=== PATIENT | male | born 1955 | race Caucasian/White ===

== ENCOUNTER 2016-09-28 12:17 | Emergency (ER) ==
[2016-09-28 12:26] VITALS: BP 163/79
[2016-09-28 12:55] LABS: MANUAL DIFF NEEDED? NO
[2016-09-28 12:55] LABS: URINE CULTURE PL NEEDED? NO; URINE SOURCE CLEAN CATCH
[2016-09-28 12:57] LABS: BASO% 0.2 % (0.0-0.8); EOS# 0.05 X1000 (0.0-0.7); EOS% 0.5 % (0.0-10.0); HEMATOCRIT 48.9 % (42.0-52.0); HEMOGLOBIN 16.4 g/dL (14.0-18.0); IMM GRAN# 0.02 X1000 (0.0-0.04); IMM GRAN% 0.2 % (0.0-0.5); LYMPH# 1.16 X1000 (1.2-3.4); MCH 29.6 PG (27-31); MCHC 33.5 g/dL (33-37); MCV 88.3 FL (81-99); MONO# 1.17 X1000 (0.11-0.59); MONO% 12.1 % (1.7-9.3); MPV 8.7 FL (7.4-10.4); PLT 298 X1000 (130-400); RBC 5.54 XMIL (4.7-6.1)
--- NOTE | 2016-09-28 13:09 | EKG Report ---
Test Performed on : 09/28/2016 12:55:23 PM Test Reason : prob[address] court medical clearance Blood Pressure : / mmHG Vent. Rate : 076 BPM Atrial Rate : 076 BPM P-R Int : 160 ms QRS Dur : 098 ms QT Int : 506 ms P-R-T Axes : 071 056 074 degrees QTc Int : 569 ms Normal sinus rhythm. Prolonged QT Abnormal ECG No previous ECGs available Unconfirmed Result
--- NOTE | 2016-09-28 13:10 | ED EKG INTERP ---
EKG Interpretation - EKG Time of EKG reading by physician:: 12:55 EKG Read and Signed by:: Hardeep Becker EKG Interpretation (*Must complete 3 of following elements*): Abnormal ( PROLONGED QT;ABNORMAL ECG) Rate: 76 Rhythm: NSR [place]: normal [place] Interval: normal Attestation - Scribe Verification/Attestation Scribe:: Yomi Flaherty Acting as Scribe for:: Hardeep Becker Scribe documention review:: This chart was documented by a scribe and accurately reflects the service the provider performed and the decisions made by the provider. Physician Attestation - Physician Attestation I, the provider, attest to the following statement:: Hardeep Becker Physician documentation Attestation:: This documentation recorded by the scribe accurately reflects the service I personally performed and the decisions made by me.
--- NOTE | 2016-09-28 13:13 | Diag Imaging Result Document ---
PROCEDURE NAME: HEAD W/O CONTRAST - 09/28/2016 CT HEAD WITHOUT CONTRAST: A dose-reduction protocol was used. COMPARISON: No comparison exam. FINDINGS: There is no evidence of intracranial hemorrhage, mass effect, midline shift, or hydrocephalus. There is no evidence of infarct, although acute infarcts may not be immediately visible. There is no skull fracture. IMPRESSION: No visible acute process. No hemorrhage or mass effect.
--- NOTE | 2016-09-28 13:14 | Diag Imaging Result Document ---
PROCEDURE NAME: CHEST-2 VIEWS - 09/28/2016 CHEST, 2 VIEWS: COMPARISON: No comparison exam. FINDINGS: Heart size is normal. There is apparent mild lobulated pleural thickening at the lateral lower chest on the left. It is possible that this could relate to previous rib fractures. The lungs, otherwise, appear clear. There is no pleural effusion or pneumothorax identified. IMPRESSION: Mild lobulated pleural thickening at the lateral lower left chest. This is of uncertain etiology but could conceivably relate to previous rib fractures. The possibility that this is artifact from soft tissue overlap cannot be entirely excluded. No other evidence of acute disease.
[2016-09-28 13:15] LABS: AGAP 13; ALBUMIN 4.7 g/dL (3.5-5.0); ALKALINE PHOSPHATASE 103 U/L (32-122); BUN 18 mg/dL (8-22); CALCIUM 9.6 mg/dL (8.8-10.2); CHLORIDE 97 mmol/L (98-107); COSMO 271; GOT 17 U/L (10-34); GPT 15 U/L (10-44); MAGNESIUM 2.2 mg/dL (1.5-2.7); POTASSIUM 3.8 mmol/L (3.5-5.1); SODIUM 134 mmol/L (136-145); TCO2 24 mmol/L (25-35); TOTAL PROTEIN 8.7 g/dL (6.3-8.3)
[2016-09-28 13:16] LABS: BILIRUBIN URINE NEGATIVE (NEGATIVE); BLOOD URINE TRACE (NEGATIVE); CLARITY CLEAR (CLEAR); COLOR YELLOW; GLUCOSE URINE NEGATIVE (NEGATIVE); LEUKOCYTES URINE NEGATIVE (NEGATIVE); NITRITE URINE NEGATIVE (NEGATIVE); PROTEIN URINE TRACE mg/dL (NEGATIVE); SP GRAVITY URINE 1.015; URINE EPITHELIAL CELLS <10 /HPF (<10); URINE RBC <10 /HPF (<10); UROBILINOGEN URINE NORMAL
[2016-09-28 13:26] LABS: FREE T4 1.81 ng/dL (0.93-1.70)
--- NOTE | 2016-09-28 13:34 | PROVIDER DOCUMENTATION ---
HPI-General Adult - General Chief Complaint: Psych Stated Complaint: TRACY VO Time Seen by Provider: 09/28/16 12:19 Source: patient, family Allergies/Adverse Reactions: Patient Allergies Allergy/AdvReac Type Severity Reaction Status Date / Time No Known Allergies Allergy Verified 09/28/16 12:25 Home Medications: Home Medication List Medication Instructions Recorded Confirmed Last Taken Type No Home Medications 09/28/16 09/28/16 Unknown History - History of Present Illness -Gen Adult Nature of Presenting Problems: Pt. is 61 yom that presents with c/o visual hallucinations. Pt. reports last night he was seeing people in the house and telling his about them. He was seeing people from his place of employment and animals such as a snake. Pt. denies any SI, HI or auditory hallucinations. Pt. is unsure if he wants to seek in-patient treatment but is willing to be screened because he isn't sure why this is happening to him. Spouse at bedside reports the patient used to be an addict and that this does not seem like when he used drugs. Pt. denies any physical complaints. Location of Pain/Injury: reports: none. denies: head, face, mouth, neck, chest , upper extremity, hand(s), abdomen, back, pelvis, genitalia, lower extremity, feet, upper body, lower body, generalized Pain Radiation: reports: no radiation Quality of Pain: reports: none. denies: aching, burning, cramping, dull, fullness, indigestion, pressure, sharp, stabbing, tearing, throbbing, tightness Severity: denies: mild, moderate, severe Onset/Duration: reports: abrupt, last night Timing: reports: still present. denies: improving, gone now, resolved prior to arrival, intermittent, constant, changing over time, getting worse Context/Activities at Onset: reports: none. denies: recent emotional stress, recent physical stress, recent trauma history, possible bad food, cold exposure , out of country travel Modifying Factors: improves with: nothing Associated Symptoms: reports: other (Visual hallucinations). denies: anxiety, arm pain, back/neck pain, chest pain, constipation, cough, diaphoresis, diarrhea , dizziness, EENT symptoms, fatigue, fever/chills, genitourinary problems, headaches, heartburn, joint pain, loss of appetite, malaise, muscle aches, sinus congestion/drainage, nausea, rash, seizure, shortness of breath, sensory/ motor loss, pain with inspiration, swelling/mass in abdomen, syncope, vomiting, weakness, trouble walking Similar Symptoms Previously?: Yes Recently seen or treated by another doctor?: No Review of Systems - Adult - REVIEW OF SYSTEMS - ADULT Constitutional: reports: see HPI. denies: chills, fever, fatique Eyes: reports: see HPI. denies: discharge, blurred vision, eye pain Ears, Nose, Mouth & Throat: reports: see HPI. denies: ear discharge, ear pain, hearing loss, sinus problem, nose pain, loose teeth, mouth/dental pain, throat swelling Cardiovascular: reports: see HPI. denies: chest pain, heart murmur, orthopnea, palpitations, syncope Respiratory: reports: see HPI. denies: chronic cough, cough, dyspnea on exertion, pleurisy, shortness of breath, wheezing Gastrointestinal: reports: see HPI. denies: abdominal pain, hematemesis, diarrhea, nausea, vomiting Genitourinary: reports: see HPI. denies: dysuria, discharge, flank pain, hesitency, urgency Musculoskeletal: reports: see HPI. denies: bone pain, back pain, joint pain, muscle aches, neck pain Integumentary: reports: see HPI. denies: hives, itching, rash, skin thickening Neurological: reports: see HPI. denies: ataxia, headache/migraines, numbness, seizure, tremors Psychiatric: reports: see HPI, other (Visual hallucinations). denies: anxiety, depression, emotional problems, insomnia, panic attacks, suicidal thoughts Past History - Adult - PAST MEDICAL HISTORY-ADULT Review of Records: reports: Old Records Reviewed, Nursing Assessment Review, Medications Reviewed, Social history reviewed & non-contributory. - IMMUNIZATION STATUS Childhood Immunizations: See Nurse Assessment Flu Vaccine: See Nurse Assessment - FAMILY HISTORY Family History: reviewed, not pertinent - SOCIAL HISTORY Smoking: non-smoker Physical Exam-General - PHYSICAL EXAM-ADULT Initial Vital Signs Reviewed: Yes - CONSTITUTIONAL General Appearance: alert, mild distress, thin. negative: obese, anxious, lethargic, slow to respond, obtunded, combative - EYES Eyes: PERRL/EOMI, pink conjunctivae. negative: conjuctival exudate, scleral icterus, subconjunctival hemorrhage - HEAD, EARS, NOSE, MOUTH & THROAT HENMT: normocephalic/atraumatic, moist mucous membranes. negative: angioedema, frontal tenderness, maxillary tenderness - NECK Neck: non-tender, full range of motion, supple, normal inspection. negative: lymphadenopathy, trachial deviation, thyromegaly - RESPIRATORY Respiratory: lungs clear, normal breath sounds. negative: crackles, rales, rhonchi, stridor, wheezing - CARDIOVASCULAR Cardiovascular: normal peripheral pulses, regular rate, rhythm, no edema, no JVD , no murmur. negative: extra beats, friction rub, irregularly irregular - CHEST (BREASTS) Chest/Breast: deferred - GASTROINTESTINAL (ABDOMEN) Abdominal Exam: normal bowel sounds, non tender, soft. negative: distended, guarding, rigid, rebound, tenderness, hernia, mass - GENITOURINARY Male Genitalia: deferred Rectal Exam: deferred Hemoccult Exam: deferred - LYMPHATIC Lymphatic: no adenopathy. negative: axilla node tender, cervical node tenderness - MUSCULOSKELETAL Back Exam: normal inspection, no CVA tenderness, no vertebral tenderness. negative: ecchymosis, swelling, vertebral tenderness Extremity: normal range of motion, non-tender, normal gait, normal inspection. negative: deformity, erythema, inflammation, swelling, tenderness Peripheral Pulses: radial (R): 2+, radial (L): 2+ - SKIN Integumentary: normal color, normal turgor, warm/dry. negative: cyanosis, diaphoresis, ecchymosis, erythema, jaundice, mottled, pallor, petechiae, purpura , rash, swelling, tenderness - NEUROLOGIC Neurologic: grossly normal, no motor/sensory deficits. negative: aphasia, facial droop, focal weakness, motor weakness, sensory deficit - PSYCHIATRIC Psych/Mental Status: oriented x 3, disheveled, other (Visual hallucinations). negative: anxious, paranoid Progress - PLAN OF CARE/RESULTS Progress/Plan/Lab Results: Discussed chest x-ray results with Dr. Becker and he states there is nothing to do for the patient based on the radiology reading and the fact that the patient has no physical complaints. Sharron from [facility] evaluated the patient and the patient refused any in patient treatment. He will seek outpatient treatment Discussed results and plan of care with patient. Patient agrees with plan and verbalizes understanding. Vital Signs Temp Pulse Resp BP Pulse Ox 09/28/16 12:20 98 F 81 18 163/79 100 No Known Allergies Allergy (Verified 09/28/16 12:25) No Home Medications 09/28/16 Laboratory 09/28/16 09/28/16 09/28/16 12:48 12:48 12:48 WBC 9.63 RBC 5.54 Hgb 16.4 Hct 48.9 MCV 88.3 MCH 29.6 MCHC 33.5 RDW Std Deviation 13.1 Plt Count 298 MPV 8.7 Immature Gran % (Auto) 0.2 Neut % (Auto) 75.0 Lymph % (Auto) 12.0 L [place] % (Auto) 12.1 H Eos % (Auto) 0.5 Baso % (Auto) 0.2 Immature Gran # (Auto) 0.02 Neut # (Auto) 7.21 H Lymph # (Auto) 1.16 L [place] # (Auto) 1.17 H Eos # (Auto) 0.05 Baso # (Auto) 0.02 Sodium 134 L Potassium 3.8 Chloride 97 L Carbon Dioxide 24 L Anion Gap 13 BUN 18 Creatinine 0.9 Estimated GFR/1.73 m2 > 60 BUN/Creatinine Ratio 20 Glucose 115 H Calculated Osmolality 271 Calcium 9.6 Magnesium 2.2 Total Bilirubin 1.00 AST 17 ALT 15 Alkaline Phosphatase 103 Total Protein 8.7 H Albumin 4.7 Globulin 4.0 Albumin/Globulin Ratio 1.0 TSH 0.56 Free T4 1.81 H Urine Source Urine Color Urine Clarity Urine pH Ur Specific [place] Urine Protein Urine Ketones Urine Blood Urine Nitrite Urine Bilirubin Urine Urobilinogen Urine Microscopic RBC Urine WBC Ur Epithelial Cells Urine Bacteria Urine Yeast Urine Glucose Urine Opiates Screen Ur Oxycodone Screen Urine Methadone Screen Ur Barbituates Screen Ur Tricyclics Screen Ur Phencyclidine Scrn Ur Amphetamines Screen U Methamphetamines Scrn Urine MDMA Screen U Benzodiazepines Scrn Urine Cocaine Screen U Cannabinoids Screen 09/28/16 09/28/16 12:30 12:30 WBC RBC Hgb Hct MCV MCH MCHC RDW Std Deviation Plt Count MPV Immature Gran % (Auto) Neut % (Auto) Lymph % (Auto) [place] % (Auto) Eos % (Auto) Baso % (Auto) Immature Gran # (Auto) Neut # (Auto) Lymph # (Auto) [place] # (Auto) Eos # (Auto) Baso # (Auto) Sodium Potassium Chloride Carbon Dioxide Anion Gap BUN Creatinine Estimated GFR/1.73 m2 BUN/Creatinine Ratio Glucose Calculated Osmolality Calcium Magnesium Total Bilirubin AST ALT Alkaline Phosphatase Total Protein Albumin Globulin Albumin/Globulin Ratio TSH Free T4 Urine Source CLEAN CATCH Urine Color YELLOW Urine Clarity CLEAR Urine pH 6.0 Ur Specific [place] 1.015 Urine Protein TRACE A Urine Ketones NEGATIVE Urine Blood TRACE Urine Nitrite NEGATIVE Urine Bilirubin NEGATIVE Urine Urobilinogen NORMAL Urine Microscopic RBC <10 Urine WBC NEGATIVE Ur Epithelial Cells <10 Urine Bacteria 1+ Urine Yeast PRESENT Urine Glucose NEGATIVE Urine Opiates Screen PRESUMPTIVE POSITIVE A Ur Oxycodone Screen PRESUMPTIVE POSITIVE A Urine Methadone Screen NONE DETECTED Ur Barbituates Screen NONE DETECTED Ur Tricyclics Screen NONE DETECTED Ur Phencyclidine Scrn NONE DETECTED Ur Amphetamines Screen NONE DETECTED U Methamphetamines Scrn NONE DETECTED Urine MDMA Screen NONE DETECTED U Benzodiazepines Scrn PRESUMPTIVE POSITIVE A Urine Cocaine Screen NONE DETECTED U Cannabinoids Screen NONE DETECTED Orders Category Date Time Status CHEST-2 VIEWS [RAD] Stat Exams 09/28/16 12:19 Completed HEAD W/O CONTRAST [CT] Stat Exams 09/28/16 12:20 Completed CBC WITH ELECTRONIC DIFF [HEME] Stat Lab 09/28/16 12:48 Completed COMPREHENSIVE METABOLIC PANEL [CHEM] Stat Lab 09/28/16 12:48 Completed FOLATE Stat Lab 09/28/16 12:48 Received FREE T4 Stat Lab 09/28/16 12:48 Results MAGNESIUM [CHEM] Stat Lab 09/28/16 12:48 Completed RPR [SERO] Stat Lab 09/28/16 12:48 Received TSH Stat Lab 09/28/16 12:48 Results UDS [URINE DRUG SCREEN PL] Stat Lab 09/28/16 12:[address] W/POSS RFLX CULT [URINALYSIS] Stat Lab 09/28/16 12:30 Completed VITAMIN B12 Stat Lab 09/28/16 12:48 Results EKG [EKG] Stat Ther 09/28/16 12:19 Draft Laboratory Tests 09/28/16 09/28/16 09/28/16 12:30 12:30 12:48 WBC RBC Hgb Hct MCV MCH MCHC RDW Std Deviation Plt Count MPV Immature Gran % (Auto) Neut % (Auto) Lymph % (Auto) [place] % (Auto) Eos % (Auto) Baso % (Auto) Immature Gran # (Auto) Neut # (Auto) Lymph # (Auto) [place] # (Auto) Eos # (Auto) Baso # (Auto) Sodium 134 L Potassium 3.8 Chloride 97 L Carbon Dioxide 24 L Anion Gap 13 BUN 18 Creatinine 0.9 Estimated GFR/1.73 m2 > 60 BUN/Creatinine Ratio 20 Glucose 115 H Calculated Osmolality 271 Calcium 9.6 Magnesium 2.2 Total Bilirubin 1.00 AST 17 ALT 15 Alkaline Phosphatase 103 Total Protein 8.7 H Albumin 4.7 Globulin 4.0 Albumin/Globulin Ratio 1.0 TSH Free T4 Urine Source CLEAN CATCH Urine Color YELLOW Urine Clarity CLEAR Urine pH 6.0 Ur Specific [place] 1.015 Urine Protein TRACE A Urine Ketones NEGATIVE Urine Blood TRACE Urine Nitrite NEGATIVE Urine Bilirubin NEGATIVE Urine Urobilinogen NORMAL Urine Microscopic RBC <10 Urine WBC NEGATIVE Ur Epithelial Cells <10 Urine Bacteria 1+ Urine Yeast PRESENT Urine Glucose NEGATIVE Urine Opiates Screen PRESUMPTIVE POSITIVE A Ur Oxycodone Screen PRESUMPTIVE POSITIVE A Urine Methadone Screen NONE DETECTED Ur Barbituates Screen NONE DETECTED Ur Tricyclics Screen NONE DETECTED Ur Phencyclidine Scrn NONE DETECTED Ur Amphetamines Screen NONE DETECTED U Methamphetamines Scrn NONE DETECTED Urine MDMA Screen NONE DETECTED U Benzodiazepines Scrn PRESUMPTIVE POSITIVE A Urine Cocaine Screen NONE DETECTED U Cannabinoids Screen NONE DETECTED 09/28/16 09/28/16 12:48 12:48 WBC 9.63 RBC 5.54 Hgb 16.4 Hct 48.9 MCV 88.3 MCH 29.6 MCHC 33.5 RDW Std Deviation 13.1 Plt Count 298 MPV 8.7 Immature Gran % (Auto) 0.2 Neut % (Auto) 75.0 Lymph % (Auto) 12.0 L [place] % (Auto) 12.1 H Eos % (Auto) 0.5 Baso % (Auto) 0.2 Immature Gran # (Auto) 0.02 Neut # (Auto) 7.21 H Lymph # (Auto) 1.16 L [place] # (Auto) 1.17 H Eos # (Auto) 0.05 Baso # (Auto) 0.02 Sodium Potassium Chloride Carbon Dioxide Anion Gap BUN Creatinine Estimated GFR/1.73 m2 BUN/Creatinine Ratio Glucose Calculated Osmolality Calcium Magnesium Total Bilirubin AST ALT Alkaline Phosphatase Total Protein Albumin Globulin Albumin/Globulin Ratio TSH 0.56 Free T4 1.81 H Urine Source Urine Color Urine Clarity Urine pH Ur Specific [place] Urine Protein Urine Ketones Urine Blood Urine Nitrite Urine Bilirubin Urine Urobilinogen Urine Microscopic RBC Urine WBC Ur Epithelial Cells Urine Bacteria Urine Yeast Urine Glucose Urine Opiates Screen Ur Oxycodone Screen Urine Methadone Screen Ur Barbituates Screen Ur Tricyclics Screen Ur Phencyclidine Scrn Ur Amphetamines Screen U Methamphetamines Scrn Urine MDMA Screen U Benzodiazepines Scrn Urine Cocaine Screen U Cannabinoids Screen - XRAY 1 XRAY Study: Chest (Mild lobulated pleural thickening at the lateral lower left chest. This is of uncertain etiology but could conceivably relat to previous rib fractures. The possibility that this is artifact from soft tissue orverlap cannot be entirely excluded. No other evidence of acute disease. ( [place])) XRAY Interpretation: See note - CT/MRI 1 CT Study: Head CT Results: No visual acute process. No hemorrhage or mass effect ([place]) Departure - Departure Time of Disposition Order: 15:28 DIAGNOSIS: Substance abuse, Visual hallucinations Disposition: HOME 01 Certified Medical Emergency: Emergent Condition: Stable Additional Instructions: Follow up with primary care physician Return to ED for any concerns or worsening of symptoms ED Follow Up Instructions: You have been treated by a care provider in the Emergency Department. These instructions are being provided to you so you can have an understanding of how to care for yourself upon discharge. Upon discharge from the Emergency Department, you are responsible for making arrangements for follow-up care by a physician of your choice. Take all prescribed medications as directed. Return to the Emergency Department immediately for any new or worsening symptoms. You may call the Physician Referral phone number at [phone] to obtain a list of Physicians who are taking new patients. Attestation - Physician/ KATERINE Attestation Patient care was provided by Advanced Practice Provider:: Yes Advanced Practice Provider:: Edil Barone Advanced Practice Provider documentation review:: The Mid-level provider documentation, treatment plan and medical decision making was reviewed by the physician who agrees with all treatment and medical decision making by the MLP.
[2016-09-28 14:11] LABS: UR AMPHETAMINES QUAL NONE DETECTED (NONE DETECT); UR BARBITUATES QUAL NONE DETECTED (NONE DETECT); UR BENZODIAZEPIN QUAL PRESUMPTIVE POSITIVE (NONE DETECT); UR CANNABINOIDS QUAL NONE DETECTED (NONE DETECT); UR COCAINE QUAL NONE DETECTED (NONE DETECT); UR MDMA QUAL NONE DETECTED (NONE DETECT); UR METHADONE QUAL NONE DETECTED (NONE DETECT); UR METHAMPHETAMINE QUAL NONE DETECTED (NONE DETECT); UR OPIATES QUAL PRESUMPTIVE POSITIVE (NONE DETECT); UR OXYCODONE QUAL PRESUMPTIVE POSITIVE (NONE DETECT); UR PCP QUAL NONE DETECTED (NONE DETECT); UR TCA QUAL NONE DETECTED (NONE DETECT)
== END 2016-09-28 15:59 | disposition home or self-care (01) ==
LOC: P.ED 12:17
DX: F19.10 Other psychoactive substance abuse, uncomplicated (principal); R44.1 Visual hallucinations; R94.31 Abnormal electrocardiogram [ECG] [EKG]
CPT/HCPCS: 36415; 70450; 71020; 80053; 80305; 81001; 82607; 82746; 83735; 84439; 84443; 85025; 86592; 93005